=== PATIENT | female | born 1950 | race Caucasian/White ===

== ENCOUNTER 2018-03-10 05:05 | Day surgery (SDC) | payer MEDICARE, BC ==
[2018-03-09 16:03] LABS: HEMATOCRIT 37.7 % (36.0-48.0); HEMOGLOBIN 12.8 g/dL (12-16); MCH 33.3 pg (26.0-34.0); MCV 98.2 fL (80.0-100.0); RBC 3.84 10x6/uL (4.00-5.40); WBC 7.8 10x3/uL (4.8-10.8)
[~2018-03-10] VITALS: Ht 157.5 cm; Wt 74.8 kg
--- NOTE | ~2018-03-10 | OP ---
PATIENT NAME: SEAN VALENZUELA MEDICAL RECORD: [id number] :54 LOCATION:D.OPS ADMISSION DATE: SURGEON: KUNAL KAUR DPM DATE OF OPERATION: 03/10/2018 PREOPERATIVE DIAGNOSES: 1. Dorsal left foot spur. 2. Nerve entrapment of deep peroneal nerve, dorsal left foot. POSTOPERATIVE DIAGNOSES: 1. Dorsal left foot spur. 2. Nerve entrapment of deep peroneal nerve, dorsal left foot. PROCEDURES: 1. Dorsal mid foot spur removal, left foot. 2. Neurolysis of deep peroneal nerve, dorsal left foot. ANESTHESIA: Local with IV sedation utilizing lidocaine and Marcaine plain, 7 cc total in a V-block fashion proximal to the surgical site. HEMOSTASIS: Left ankle tourniquet at 250 mmHg. PREOPERATIVE DETAILS: The patient was taken to the OR and placed on the operating table in a supine position. This was followed by induction of general anesthesia and infiltration of local anesthetic. The left extremity was then prepped and draped in usual aseptic technique followed by exsanguination and inflation of tourniquet. PROCEDURE #1: Dorsal left foot spur removal: A 15-blade was used to create a linear incision over the dorsal aspect of the left foot just medial to the dorsalis pedis artery. The incision was deepened down through subcutaneous tissue being sure to avoid all vital structures including the deep peroneal nerve as well as the vena comitans and the dorsalis pedis artery, which were visualized and retracted in the wound. A periosteal incision was then made and the dorsal spurring was visualized and freed from the periosteum. Osteotome and mallet, rongeur and rasp were used then to remove the spurring and smooth the dorsal foot. Once this was successfully completed, the second procedure was then performed. PROCEDURE #2: Neurolysis of deep peroneal nerve, left foot. Utilizing the incision and dissection as described above, the deep peroneal nerve was visualized and freed from all adherences to the periosteum as well as the subcutaneous tissue. The nerve was quite entrapped and it was moved lateral in the neurovascular bed. Once this was accomplished, the wound was flushed. The periosteum was then repaired with 2-0 Vicryl, the subcutaneous tissue with 4-0 Rapide and the skin was closed with 4-0 Rapide in a subcuticular technique followed by Dermabond. Adaptic, 4 x 4 and Conform were used to dress the wound followed by Coban. Tourniquet was deflated. POSTOPERATIVE DETAILS: The patient tolerated the procedure well and left the OR with vital signs stable and vascular status at preop levels. The patient was transported to recovery per anesthesia in stable condition. TRANSINT:[id number] Voice Confirmation ID: [id number] DOCUMENT ID: [id number] OPERATIVE REPORT [id number] SEAN VALENZUELA, KUNAL KLINE at 0922 CC: [id number] DICTATION DATE: 03/10/18 0759 MEDICINE TEACHER: 03/10/18 0948 [facility] [place] 03/10/18 [id number] [place] [address]
[~2018-03-10 05:05] MED LIST: PREMARIN0.625 MG PO; PROTONIX40 MG PO
[2018-03-10 06:24] VITALS: BP 183/77; Ht 157.5 cm; Wt 74.8 kg
== END 2018-03-10 10:00 | disposition home or self-care (01) ==
LOC: D.OPS 05:05 → D.PAN 07:00 → D.OPS 10:00
PROVIDERS: Anesthesiology
DX: M77.52 Other enthesopathy of left foot and ankle (principal); G57.32 Lesion of lateral popliteal nerve, left lower limb; Z01.812 Encounter for preprocedural laboratory examination

== ENCOUNTER → 2020-01-15 10:12 | Outpatient (CLI) | payer MEDICARE, BC ==
[2018-03-10 06:24] VITALS: BMI 30.2
[~2020-01-15 10:12] MED LIST changes: +ACIDOPHILUS-PE1 EACH; +ASCORBIC ACID500 MG PO; +CO Q-1030 MG PO; +ECHINACEA; +GALZIN25 MG; +GLUCOSAMINE HC500 MG PO; +GROUND FLAX SEED; +MULTI-DAY VITAM1 TAB PO; +OS-CAL500 MG PO; +TUMERIC; +VITAMIN D1000 UNIT PO; +VITAMIN E200 UNI1 PO
== END | disposition home or self-care (01) ==
LOC: D.LAB 10:12
PROVIDERS: ATTEND Podiatrist
DX: Z11.59 Encounter for screening for other viral diseases (principal)

== ENCOUNTER 2020-01-18 05:06 | Day surgery (SDC) | payer MEDICARE, BC ==
[2020-01-16 12:01] LABS: HEMATOCRIT 40.4 % (36.0-48.0); HEMOGLOBIN 13.2 g/dL (12-16); MCHC 32.7 g/dL (31.0-37.0); MEAN PLATELET VOLUME 9.4 fL (7.4-10.4); RDW 13.4 % (11.5-14.5); WBC 8.8 10x3/uL (4.8-10.8)
[~2020-01-18] VITALS: Ht 157.5 cm; Wt 74.8 kg
--- NOTE | ~2020-01-18 | OP ---
PATIENT NAME: SEAN VALENZUELA MEDICAL RECORD: [id number] :54 LOCATION:D.OPS ADMISSION DATE: SURGEON: KUNAL KAUR DPM DATE OF OPERATION: 01/18/2020 PREOPERATIVE DIAGNOSIS: Spur, dorsal aspect of the right foot with nerve entrapment of the deep peroneal nerve. POSTOPERATIVE DIAGNOSIS: Spur, dorsal aspect of the right foot with nerve entrapment of the deep peroneal nerve. PROCEDURES: 1. Spur removal, dorsal aspect of the right mid foot. 2. Decompression of the deep peroneal nerve of the right foot. ANESTHESIA: General with local infiltrate utilizing lidocaine and Marcaine plain, 10 cc total around the surgical site. HEMOSTASIS: Right ankle tourniquet at 250 mmHg. PREOPERATIVE DETAILS: The patient was taken to the OR and placed on the operating table in a supine position. This was followed by induction of general anesthesia and infiltration of local anesthetic. The right extremity was then prepped and draped in usual aseptic technique followed by exsanguination and inflation of tourniquet. PROCEDURE #1: Spur removal, dorsal aspect of the right foot: A 15-blade was used to create a 3.5-4 cm linear incision over the dorsal aspect of the right mid foot. The incision was deepened down through subcutaneous tissue being sure to avoid all vital structures. The dorsalis pedis artery was visualized as well as the deep peroneal nerve. An incision was made in the periosteum just medial to the neurovascular bundle. Periosteum was freed from the dorsal aspect of the dorsal midfoot. [place] as well as an osteotome and mallet and rasp were used to remove the enlargement on the dorsal aspect of the mid foot. The wound was flushed. The nerve was freed and was no longer laying over the top of the spur. The wound was flushed. The 2-0 Vicryl was then used to close the periosteum followed by closure of the subcutaneous tissue with 4-0 Rapide. The skin was then closed with 4-0 Rapide in a subcuticular technique followed by Dermabond. Adaptic, 4 x 4 and Conform were used to dress the wound followed by Neil wrap. Tourniquet was deflated. POSTOPERATIVE DETAILS: The patient tolerated procedure well and left the OR with vital signs stable and vascular status at preoperative levels. The patient was transported to recovery per anesthesia in stable condition. TRANSINT:[id number] Voice Confirmation ID: [id number] DOCUMENT ID: [id number] OPERATIVE REPORT [id number] SEAN VALENZUELA MCKAY DPM CC: [id number] DICTATION DATE: 01/18/20805 CONDUIT REAMER OPERATOR: 01/18/20 1326 [facility] 01/18/20 [place] [id number]
[~2020-01-18 05:06] MED LIST changes: -GROUND FLAX SEED; -VITAMIN E200 UNI1 PO
[2020-01-18] MEDS ORDERED: GROUND FLAX SEED (06:14)
[2020-01-18] MEDS ORDERED: VITAMIN E200 UNI1 PO (06:15)
[2020-01-18 06:23] VITALS: BP 154/74; Ht 157.5 cm; Wt 74.8 kg
--- NOTE | 2020-01-18 08:33 | NUR ---
0820 ICE APPLIED, PLACED ON PILLOW, ELEVATED ON BED, TIME FRAME FOR DISCHARGE GIVEN.
== END 2020-01-18 09:33 | disposition home or self-care (01) ==
LOC: D.OPS 05:06 → D.PAN 07:00 → D.OPS 07:00
PROVIDERS: Anesthesiology; ATTEND Podiatrist
DX: M77.9 Enthesopathy, unspecified (principal); G57.31 Lesion of lateral popliteal nerve, right lower limb